=== PATIENT | female | born 1995 | race Caucasian/White ===

== ENCOUNTER 2016-09-24 03:13 | Inpatient (IN) | payer OTHER ==
[~2016-09-24] VITALS: Ht 172.7 cm; Wt 69.1 kg
[2016-09-24] VITALS (20 sets, daily range): BP systolic 82–117; BP diastolic 35–66; PULSE 92–144; RESP 10–41; O2SAT 89–100
--- NOTE | 2016-09-24 03:15 | NUR ---
heart tones FHTs 165 w/doppler in ER
[2016-09-24] MEDS ORDERED: 0.9% Sodium Chloride 1,000 ML IV ONE ×2 (03:33→08:00)
--- NOTE | 2016-09-24 03:44 | ED.REPORT ---
HPI-General Illness Date of Service Sep 24, 2016 ED Provider: Dr. Juanpablo Alcaraz M.D. A healthy 21 year old female at 31 weeks presents to the ED accompanied by her parents with dyspnea onset just prior to arrival. The patient also reports one week of fever (39.3 in ED), fatigue, and worsening productive cough with yellow sputum. She denies diarrhea, vomiting, dysuria, hematuria, or other symptoms. Two days ago the patient was seen by her PCP and placed on Keflex for URI and UTI. The patient takes buprenorphine regularly but is currently on a taper. Nursing Notes Stated Complaint: FEVER/TROUBLE BREATHING Chief Complaint: FLU/Cold Symptoms Nursing Notes Reviewed: Yes Allergies: Coded Allergies: No Known Allergies (Unverified , 09/24/16) General Time Seen by MD: 03:44 Chief Complaint Other (Dyspnea) Hx Obtained From: Patient Arrived By: Walk-in Sudden in Onset?: No Onset Occurred: 1 week ago Symptom Duration: Since onset Severity: Current: No pain currently Severity: Maximum: No pain Associated with: Reports: Cough, Fever, Denies: Vomiting Pertinent Negative: Relieved by nothing Recent Healthcare: Recent doctor visit, Recent testing Past Medical History Past Medical History None reported Past Surgical History None reported Smoking History Unknown if Ever Smoker Social History Other Social History: Good social support Ambulatory Status Independent Review of Systems + Dyspnea Full Review of Systems Constitutional: Reports: Fatigue, Fever (39.3 in ED) Respiratory: Reports: Prod cough, yellow GI: Denies: Diarrhea, Vomiting Female: Denies: Dysuria, Hematuria Complete sys rev & neg: except as marked. Physical Exam Vital Signs Vital Signs Date Time Temp Pulse Resp B/P Pulse Ox O2 Delivery O2 Flow Rate FiO2 09/24/16 04:53 120 24 95 Room Air 09/24/16 04:46 122 23 92/51 95 8 09/24/16 03:26 39.3 135 33 91/40 92 Room Air Initial VS: Reviewed Neurologic: Alert, Oriented, Nonfocal Psychiatric: Mood/affect normal, Behavior normal, Normal thought content General/Constitutional: Awake, Alert Distress / Hydration: Positive: Distress moderate Head / Eyes: Atraumatic, Normocephalic, No scleral icterus, Conjunctiva NL ENT: Airway patent Mouth: Positive: Mucous membranes dry Neck: Supple, Full range of motion, No adenopathy, No JVD Respiratory / Chest: Breath sounds = bilat, No respiratory distress Diminished Breath Sounds: Positive: Decreased bilateral Rales / Rhonchi: Positive: Rhonchi coarse L (Base), Rhonchi coarse R (Base) Cardiovascular: Regular rhythm, Heart sounds NL, No murmurs Heart Rate / Rhythm: Positive: Tachycardia Abdomen: Atraumatic Gravid uterus Skin: Atraumatic Color / Condition: Positive: Diaphoresis present Feels febrile Interpretation & Diagnostics Interpretation & Diagnostics: INFLUENZA NEGATIVE Lab Results Interpretation Result Diagram: 09/24/16 0350 09/24/16 0350 Test 09/24/16 03:30 09/24/16 03:50 09/24/16 04:03 Urine Color Dark yellow (YELLOW) Urine Appearance Hazy (CLEAR,HAZY) Urine pH 6.2 (5.0-8.0) Urine Specific [place] 1.020 (1.003-1.035) Urine Protein 30mg/dL (NEG,TRACE) Urine Glucose (UA) Negativemg/dL (NEGATIVE) Urine Ketones >80mg/dL (NEGATIVE) Urine Occult Blood Negative (NEGATIVE) Urine Nitrite Negative (NEGATIVE) Urine Bilirubin Negative (NEGATIVE) Urine Urobilinogen 2.0mg/dL (NORMAL) Urine Leukocyte Esterase Moderate (NEGATIVE) Urine RBC 0-2/hpf (0-2) Urine WBC 11-50/hpf (0-5) Urine Epithelial Cells Many/hpf (NONE-MOD) Urine Crystals None seen (NONE SEEN) Urine Bacteria Moderate/hpf (NONE-FEW) Urine Hyaline Casts None/lpf (NONE) Urine Granular Casts None seen (NONE SEEN) Urine Waxy Casts None seen (NONE SEEN) Urine Red Blood Cell Casts None seen (NONE SEEN) Urine White Blood Cell Casts None seen (NONE SEEN) Urine Mucus None seen (None Seen) Urine Trichomonas None seen (NONE SEEN) Urine Yeast None (NONE SEEN) Urinalysis Comment None Urine Culture Reflexed Indicated White Blood Count 7.6th/mm3 (3.8-10.1) Red Blood Count 3.80mil/mm3 (3.90-5.20) Hemoglobin 11.0g/dL (12.0-15.6) Hematocrit 31.5% (35.0-46.0) Mean Corpuscular Volume 82.9fL (81-100) Mean Corpuscular Hemoglobin 28.9pg (27.0-35.0) Mean Corpuscular Hemoglobin Concent 34.9% (32.0-37.0) Red Cell Distribution Width 12.9% (12.3-15.4) Platelet Count 160bil/L (150-400) Neutrophils (%) (Auto) 87.4% (40-74) Lymphocytes (%) (Auto) 8.5% (14-46) Monocytes (%) (Auto) 2.1% (4-12) Eosinophils (%) (Auto) 0% (0-5) Basophils (%) (Auto) 0.3% (0-3) Prothrombin Time 10.6sec (8.1-12.5) Prothromb Time International Ratio 0.99ratio Activated Partial Thromboplast Time 41.1sec (22.8-33.0) Sodium Level 131mEq/L (134-144) Potassium Level 2.8mEq/L (3.5-5.2) Chloride Level 100mEq/L (97-108) Carbon Dioxide Level 17mmol/L (18-29) Blood Urea Nitrogen 5mg/dL (6-20) Creatinine 0.57mg/dL (0.57-1.00) Estimat Glomerular Filtration Rate 188mL/min (>59) Glucose Level 121mg/dL (60-99) Lactic Acid Level 1.4mmol/L (0.4-2.0) Calcium Level 7.3mg/dL (8.5-10.1) Magnesium Level 1.6mg/dL (1.6-2.6) Total Bilirubin 0.7mg/dL (0.0-1.2) Aspartate Amino Transf (AST/SGOT) 33U/L (0-50) Alanine Aminotransferase (ALT/SGPT) 8U/L (0-32) Alkaline Phosphatase 124U/L (25-150) Troponin T 0.010ug/L (0.0-0.011) Pro-B-Type Natriuretic Peptide 1487pg/mL (0-130) Total Protein 5.8g/dL (6.4-8.4) Albumin 2.6g/dL (3.4-5.0) Lipase 36U/L (13-60) Hold [place] Top Tube Received (Received) X-Ray Chest Interpretation Chest Xray Interpretation: Bilateral pneumonia View: Portable, 1 view Interpretation / Wet Read by: Wet read ED physician Re-Eval/Medical Decision Med Decision/Clinical Course 21-year-old currently thirty-one weeks , in the middle of ibuprofen morphine taper for opioid addiction. She presents with a week of febrile illness, cough, and worsening shortness of breath. She is quite tachycardic, saturating adequately but with a pulse ox of 93% on room air. X-ray one view shows lingular and right lower lobe infiltrates. This despite treatment with Keflex over the past two days. Admitted now for IV antibiotics including Rocephin and azithromycin. Not much improved by a DuoNeb here, which she terminated after half a dose. Transported in stable condition. Time of Eval: 04:34 Patient Status: Condition unchanged Re-Evaluation/Progress Note: Patient rechecked. She has not taken her prescribed buprenorphine today. The patient now reports pleuritic chest pain. Discussed with patient x-ray and lab results, diagnosis, and plan for admit. Patient agrees with plan for care and all questions were addressed. Consultation #1: Referral / Consult Name: Calvin Davila DO Consulted With: Primary care physician Call Returned at: 04:42 Junior Web Developer: Agrees with eval, Agrees with plan Note: call center analyst for Dr. Casarez - Will consult on admit Consultation #2: Referral / Consult Name: Princess Santacruz DO Consulted With: Hospitalist Call Returned at: 04:47 Junior Web Developer: Agrees with eval, Agrees with plan, Accepts admit Counseled Regarding: Diagnosis, Lab results, Need for admission Discharge & Departure Primary Impression: Bilateral pneumonia Pneumonia type: due to unspecified organism Lung location: lower lobe of lung Qualified Code: J18.9 - Pneumonia, unspecified organism Disposition: ADMITTED TO HOSPITAL Discharge Condition All VS Reviewed: Yes Condition: Improved Referrals: Moreno Casarez MD (PCP) Evaristoibjosie Attestation Portions of this note were transcribed by Camryn Beaver. I, Dr. Alcaraz, personally performed the history, physical exam, and medical decision-making; I reviewed and confirmed the accuracy of the information in the transcribed note. Signed by: Oswald Loyd, 09/24/2016, 05:30 copies to: Moreno Casarez MD, Christopher W MD Sep 24, 2016 03:44 CAMRYN BEAVER Sep 24, 2016 03:57
[2016-09-24 03:47] LABS: APPEARANCE,URINE HAZY (CLEAR,HAZY); COLOR,URINE DARK YELLOW (YELLOW); OCCULT BLOOD,URINE NEGATIVE (NEGATIVE); PH,URINE 6.2 (5.0-8.0)
[2016-09-24 04:05] LABS: Mean Corpuscular Hemoglobin 28.9 pg (27.0-35.0); Mean Corpuscular Volume 82.9 fL (81-100); Platelet Count 160 bil/L (150-400)
[2016-09-24 04:20] LABS: BASOPHILS % (AUTO) 0.3 % (0-3); EOSINOPHILS % (AUTO) 0 % (0-5); MONOCYTES % (AUTO) 2.1 % (4-12); NEUTROPHILS % (AUTO) 87.4 % (40-74)
[2016-09-24 04:25] LABS: INR 0.99 ratio
[2016-09-24 04:31] LABS: TROPONIN T 0.01 ug/L (0.0-0.011)
[2016-09-24] MEDS ORDERED: cefTRIAXone Inj 2,000 MG in Dextrose 5% Minibag Plus 50 ML IV ONE (04:35)
[2016-09-24] MEDS ORDERED: Azithromycin Inj 500 MG in Dextrose 5% w/Vial Mate 250 ML IV ONE (04:35)
[2016-09-24] MEDS ORDERED: Albuterol-Ipratropium 3 mL Inhalation Solution NEB ONE (04:40)
[2016-09-24 04:42] LABS: Magnesium 1.6 mg/dL (1.6-2.6)
[2016-09-24] MEDS ORDERED: Ondansetron 2 mg/mL 2 mL Inj IVPUSH PRN (04:50)
[2016-09-24] MEDS ORDERED: Alum-Mag Hydrox-Simeth 30 mL Suspension PO PRN (04:50)
[2016-09-24] MEDS ORDERED: Polyethylene Glycol (PEG) 17 Gm Powder PO PRN (04:50)
[2016-09-24] MEDS ORDERED: 0.9% Sodium Chloride 1,000 ML IV SCH (04:50)
[2016-09-24] MEDS ORDERED: Potassium Chloride 20 mEq SR Tablet PO ONE (05:50)
--- NOTE | 2016-09-24 05:53 | PCM.HPMED ---
Subjective Date of Service Sep 24, 2016 Primary Provider: Admitting Physician: Primary Care Physician: Moreno Casarez MD Attending Physician: Chief Complaint: Fever, productive cough, myalgias History of Present Illness: 21-year-old female with past medical history significant for heroin abuse, and currently 31 weeks who presents with approximately one-week history of fever, myalgias, productive cough all of which have been worsening. She reports that approximately one week ago she noticed bilateral lower rib pain. Fevers soon followed thereafter, and did not seem to respond well to Tylenol (neither did the pain). She then developed productive cough (yellow sputum). She was seen by her law researcher (Dr. Casarez) approximately 1 or 2 days after symptoms first presented, and at which time she was encouraged to keep up with her fluids and present to the ER if she was having difficulty doing so. She subsequently presented to the ER at [facility] about 2 days ago at which time she was given a 1 time dose of IV antibiotics (potentially Rocephin), and discharged home with a prescription course of Keflex to be taken twice a day (at this point she is taken 3 tabs), and encouraged to keep up with her fluids. She presented to the ER at [facility] today as her symptoms were not improving, and she was feeling worse and worse with every day. She did not have her flu vaccine this year. She quit smoking approximately 3 weeks ago. She feels as though she just cannot get comfortable, and notes over and over the bilateral lower rib pain (please note this started before she developed her cough). She reports feeling somewhat dizzy on her feet, but no falls. She reports that the baby is moving. In the ER, her vital signs are significant for a March temperature 39.3C ( patient took a dose of Tylenol approximately 1 hour before presenting), tachycardia with a max rate of 135, tachypnea with a max rate of 33, and borderline low blood pressures with the lowest being 91/40. Thus far she has been able to maintain her pulse ox in the low to mid 90s on room air. The rapid flu test was negative. The chest x-ray is markedly abnormal with significant opacifying infiltrate in the left lower lobe, and question of one on the right. She was given empiric doses of Rocephin and azithromycin. A breathing treatment was attempted given her tachypnea, but the patient noted that she had a harder time breathing with the treatment. The ER physician discussed her case with the provider covering for Dr. Casarez (Dr. Davila), who recommended that that she be seen early this morning by local law researcher for assessment. Patient is admitted under inpatient status with expected length of stay greater than 2 midnights due to severity of presenting symptoms, risk of adverse event, and complexity of treatment plan. Review of Systems: Comprehensive review of systems conducted and was negative except for the pertinent positives listed in history of present illness above. Allergies Coded Allergies: No Known Allergies (Unverified , 09/24/16) Home Medications Medications as follows per patient and her parents report, med rec is not yet completed: Buprenorphine: Checked [facility] [employer]PORATE AFFAIRS MANAGER: 8 mg tablet sublingual daily She has been taking Tylenol on a scheduled basis for the last week or so for this fever and myalgias vitamin PMH : , currently at 31 weeks, LMP 01/25/16, [place] 10/31/16 History of bulimia History of heroin abuse, reports she has been clean for 1 year, on Subutex History of tobacco dependence, she quit 3 weeks ago Surgical History Denies any past surgical history Family History Her father reports that the family history is strong for by pneumonia. Her grandfather (he was reportedly healthy all his life) due to pneumonia in his 70s Her grandmother (she had chronic disease) due to pneumonia ( contracted during a hospitalization) in her 60s Her uncle due to pneumonia in his 50s Parents otherwise denies significant family history. Social History Hx Alcohol Use: No Hx Substance Use: Yes (history of heroin abuse, clean for 1 year, on Subutex) Hx Tobacco Use: Yes Smoking Status: Former Smoker (less than 1 pack daily, quit 3 weeks ago) Living Arrangement: with Family (lives with her parents locally) Exam Vital Signs Vital Sign - Last Date Time Temp Pulse Resp B/P Pulse Ox O2 Delivery O2 Flow Rate FiO2 09/24/16 04:46 122 23 92/51 95 8 09/24/16 03:26 39.3 Room Air Intake and Output 09/23/16 09/23/16 09/24/16 Cumulative From/Thru 15:00 23:00 07:00 09/24/16 03:26 - 09/24/16 04:00 Intake Total 1000 ml 1000 ml Balance 1000 ml 1000 ml Intake IV Total 1000 ml 1000 ml Exam General: Well-developed, female sitting up on ER gurney. Alert, Oriented X3, Cooperative, mild-moderate Distress, does not appear comfortable and continually shifting to find a more comfortable position Head: Normocephalic, atraumatic. External ears normal. Eyes: PERRL, EOMI. Anicteric sclerae. Conjunctivae are not injected Mouth: Mouth Normal, Mucous Membranes Moist/[place] Neck: Neck supple with full range of motion. No Thyromegaly. No lymphadenopathy appreciated Chest & Lungs: Diminished breath sounds in the bases bilaterally. Do not appreciate any rales, wheezes, or rhonchi. Otherwise clear good breath movement in the senior living up the apices. Tachypnea. Cardiovascular: Regular Rate/sinus tachycardia Rhythm on the monitor, Normal S1 , Normal S2, No Murmurs/Rubs/Gallops. Radial and posttibial pulses are 2+ bilaterally. Abdomen: Non-tender, Non-distended, gravid uterus is appreciated. No masses, Normoactive bowel tones, Soft Musculoskeletal: Normal Range of Motion Extremities: No cyanosis/clubbing/edema bilat Neurological: Grossly Neurologically Intact, Cranial Nerves 2-12 Intact, Normal Speech Psych: Somewhat distressed. Thought process and content intact. Lab and Diagnostics Labs Laboratory Tests 72 Hours Test 09/24/16 03:30 09/24/16 03:50 09/24/16 04:03 Urine Color Dark yellow (YELLOW) Urine Appearance Hazy (CLEAR,HAZY) Urine pH 6.2 (5.0-8.0) Urine Specific [place] 1.020 (1.003-1.035) Urine Protein 30mg/dL (NEG,TRACE) Urine Glucose (UA) Negativemg/dL (NEGATIVE) Urine Ketones >80mg/dL (NEGATIVE) Urine Occult Blood Negative (NEGATIVE) Urine Nitrite Negative (NEGATIVE) Urine Bilirubin Negative (NEGATIVE) Urine Urobilinogen 2.0mg/dL (NORMAL) Urine Leukocyte Esterase Moderate (NEGATIVE) Urine RBC 0-2/hpf (0-2) Urine WBC 11-50/hpf (0-5) Urine Epithelial Cells Many/hpf (NONE-MOD) Urine Crystals None seen (NONE SEEN) Urine Bacteria Moderate/hpf (NONE-FEW) Urine Hyaline Casts None/lpf (NONE) Urine Granular Casts None seen (NONE SEEN) Urine Waxy Casts None seen (NONE SEEN) Urine Red Blood Cell Casts None seen (NONE SEEN) Urine White Blood Cell Casts None seen (NONE SEEN) Urine Mucus None seen (None Seen) Urine Trichomonas None seen (NONE SEEN) Urine Yeast None (NONE SEEN) Urinalysis Comment None Urine Culture Reflexed Indicated White Blood Count 7.6th/mm3 (3.8-10.1) Red Blood Count 3.80mil/mm3 (3.90-5.20) Hemoglobin 11.0g/dL (12.0-15.6) Hematocrit 31.5% (35.0-46.0) Mean Corpuscular Volume 82.9fL (81-100) Mean Corpuscular Hemoglobin 28.9pg (27.0-35.0) Mean Corpuscular Hemoglobin Concent 34.9% (32.0-37.0) Red Cell Distribution Width 12.9% (12.3-15.4) Platelet Count 160bil/L (150-400) Neutrophils (%) (Auto) 87.4% (40-74) Lymphocytes (%) (Auto) 8.5% (14-46) Monocytes (%) (Auto) 2.1% (4-12) Eosinophils (%) (Auto) 0% (0-5) Basophils (%) (Auto) 0.3% (0-3) Prothrombin Time 10.6sec (8.1-12.5) Prothromb Time International Ratio 0.99ratio Activated Partial Thromboplast Time 41.1sec (22.8-33.0) Sodium Level 131mEq/L (134-144) Potassium Level 2.8mEq/L (3.5-5.2) Chloride Level 100mEq/L (97-108) Carbon Dioxide Level 17mmol/L (18-29) Blood Urea Nitrogen 5mg/dL (6-20) Creatinine 0.57mg/dL (0.57-1.00) Estimat Glomerular Filtration Rate 188mL/min (>59) Glucose Level 121mg/dL (60-99) Lactic Acid Level 1.4mmol/L (0.4-2.0) Calcium Level 7.3mg/dL (8.5-10.1) Magnesium Level 1.6mg/dL (1.6-2.6) Total Bilirubin 0.7mg/dL (0.0-1.2) Aspartate Amino Transf (AST/SGOT) 33U/L (0-50) Alanine Aminotransferase (ALT/SGPT) 8U/L (0-32) Alkaline Phosphatase 124U/L (25-150) Troponin T 0.010ug/L (0.0-0.011) Pro-B-Type Natriuretic Peptide 1487pg/mL (0-130) Total Protein 5.8g/dL (6.4-8.4) Albumin 2.6g/dL (3.4-5.0) Lipase 36U/L (13-60) Hold [place] Top Tube Received (Received) Result Diagram: 09/24/16 03509/24/16 035 Microbiology Blood and urine cultures pending Rapid flu is negative X-Rays, CTs and MRIs Chest x-ray on personal read demonstrates significant left lower lobe infiltrate with occlusion of the left inferior cardiac silhouette. 12-lead ECG Not performed this admission. Discussed her rhythm with telemetry tach and analyzed: Sinus tachycardia, QTC is within normal limits. Assessment & Plan 21-year-old female with past medical history significant for heroin abuse, and currently 31 weeks who presents with approximately one-week history of fever, myalgias, productive cough all of which have been worsening. 1. Sepsis, acute. Present on admission. -Patient received 2 L normal saline in the ER, and we will continue with IVF -Empiric antimicrobials as noted below -Lactic acid is not elevated -We will need to watch her blood pressures closely 2. Community-acquired pneumonia, acute. Present on admission. -Primary concern in this patient is influenza complicated by a secondary bacterial infection -We will administer one time dose of empiric Oseltamivir given the concern for flu in this patient * Will sign out to the day team regarding concerns and a one-time dose, and consideration for continuing 5 days at twice a day dosing. -We will continue empiric Rocephin and azithromycin for potential bacterial etiology -Respiratory PCR swab to be performed -We will add on Legionella and strep urine antigens -Add a sputum culture if patient is able to produce -She received 2 L of normal saline in the ER * In risk of developing fluid overload and pulmonary edema is higher, but with her low pressures, we will continue IVF -Administer oxygen supplementation to maintain saturations at greater than or equal to 94% -Consideration for getting infectious disease, and more importantly pulmonology involved 3. , 31 weeks, . -I have discussed the case personally with Dr. Casarez, and he has tenderness to the offered to come and evaluate the patient here in the hospital -Defer to his recommendations regarding specific interventions -Check heart tones every shift -Check NST daily 4. UTI, unclear if acute (please note the patient was seen in [facility] 2 days ago at which time she was diagnosed with UTI). Present on admission -We need to request records from [facility] -We will continue with empiric ceftriaxone, and await return of urine culture with sensitivities if positive (we will also see what they found it [place]) 5. Normocytic anemia, acute. Present on admission. -review of outpatient records demonstrates a hemoglobin of 14.6 on 03/30/16 -Potentially related to sepsis presentation -Continue to monitor labs closely 6. Hyponatremia, likely acute (but I do not have a past value to which to compare). Present on admission. -Likely related to decreased intake over the last several days given her acute illness -She received 2 L of normal saline in the ER, and we will continue with somewhat gentle hydration with LR -Continue to monitor lab 7. Hypokalemia acute and marked. Present on admission. -Stat repeat -Have ordered 20 mEq rider and 20 mEq to be given by mouth (these will be held until the stat repeat is completed) -Likely will require more -continue to monitor on telemetry 8. Non-gap metabolic acidosis, acute. Present on admission. -Given her degree of ketonuria there is significant concern for a potential ketotic process going on (starvation, alcohol, but diabetes unlikely) -Differential includes: As likely post hypocapnia (given the patient's respiratory distress over the last week), type I distal RTA, GI losses -We will check an ABG -We will add urine sodium, potassium, chloride -Fluid administration with LR at this point 9. On Subutex for history of heroin abuse. -Continue Subutex 8 mg sublingually daily 10. Tobacco dependence -Reports quit 3 weeks ago, potentially contributing to her productive cough -Consideration for very mild anxiolytic to help with withdrawal PRN MEDICATIONS - Acetaminophen as needed for mild pain/fever/headache - Bowel regimen as needed - Antiemetic as needed Patient is admitted under inpatient status with expected length of stay greater than 2 midnights due to severity of presenting symptoms, risk of adverse event, and complexity of treatment plan. Pain Evaluation: Adequate Pain Control GI Prophylaxis: Not indicated VTE Prophylaxis: Sub-Q Heparin (Unfractionated) Resuscitation Status: CPR: Attempt Resuscitation copies to: Camryn Daly PA-C; Moreno Casarez MD, Collin T DO Sep 24, 2016 04:51
[2016-09-24] MEDS ORDERED: Potassium Chloride Inj 20 MEQ in Dextrose 5% 250 ML IV ONE (06:00)
[2016-09-24] MEDS ORDERED: BUPR1FIL SL (06:22)
--- NOTE | 2016-09-24 06:37 | NUR ---
Admission Patient [place] [facility] [place] 0615. Placed on 1.5 L O2 via nasal cannula for comfort. Patient reports 4/10 chest pain from coughing, which she states is resolving. Patient reports single home medication of subutex 1 mg PO daily. Tele: sinus tachycardia in the 110s with QTc of 0.45 per compliance monitor. Continue to monitor.
[2016-09-24] MEDS: Lactated Ringer's 1,000 ML IV SCH ×3 (06:55→18:30)
[2016-09-24] MEDS ORDERED: Influenza (Adult) Vaccine 0.5 mL Syringe IM ONE (07:15)
--- NOTE | 2016-09-24 07:19 | ABG ---
DateTimeAnalyzed 07:09:00 -_ pH ____7.395 - 7.350 7.450 pCO2 ___29.3__ -mmHg 35.0 45.0 pO2 ___62.1__ -mmHg 70.0 100 HCO3- ___17.6__ -mmol/L 22.0 26.0 ABE ___-6.0__ -mmol/L -2.0 2.0 tHb ____9.6__ -g/dL 12.0 18.0 O2Hb ___90.3__ -% 95.0 COHb ____1.1__ -% 1.5 MetHb ____1.0__ -% 0.4 1.5 sO2 ___92.2__ -% FIO2 ___24.0__ -% Drawn By lw - Date/Time Notified____ 07:18:00 -_ Liter_Flow ____1.0__ -L/min Oxygen Device 1 nasal cannula - Notified By lw - Notified Whom ___Dr. de la Houssaye -__ B 755 -mmHg tO2 ___12.2__ -Vol% Jaret test _Positive -
[2016-09-24] MEDS ORDERED: KCl 40 mEq/D5W 500 mL 40 MEQ in IV Premix 500 EACH IV ONE (07:35)
[2016-09-24] MEDS ORDERED: Buprenorphine 2 mg SL Tablet SL SCH (08:30)
[2016-09-24] MEDS ORDERED: Heparin 5,000 Unit/mL Inj SUBQ SCH (08:30)
[2016-09-24] MEDS ORDERED: Multivit-Miner-Folic Acid-Iron Tablet PO SCH (08:30)
--- NOTE | 2016-09-24 08:31 | NUR ---
Social Work: Screening Data: Pt is a 21 y/o female admitted for bilateral pneumonia, 31 weeks . Pt's PCP is Dr Casarez, pt's insurance is [facility] [email or web address]. EMR reviewed. Per H&P, pt reported history of heroin use but being one year clean and on Subutex. No d/c planning needs anticipated at this time. CRYSTAL GROWER will continue to follow if needs arise. Assessment: Pt who is independent at baseline. Plan: Pt will d/c home via POV when medically stable. No d/c planning needs anticipated at this time. CRYSTAL GROWER will continue to follow if needs arise. LIZZ Blum
[2016-09-24 09:17] LABS: APPEARANCE,URINE HAZY (CLEAR,HAZY); COLOR,URINE YELLOW (YELLOW); OCCULT BLOOD,URINE TRACE (NEGATIVE); UROBILINOGEN,URINE NORMAL (NORMAL)
--- NOTE | 2016-09-24 09:22 | NUR ---
NST performed and reactive for 31 wks.
--- NOTE | 2016-09-24 09:26 | NUR ---
Pain Pt c/o of IV site pain r/t potassium infusion, reduced rate to 75mls/hr with good relief.
--- NOTE | 2016-09-24 09:54 | PCM.CHPMED ---
Subjective Date of Service: Sep 24, 2016 Provider requesting consult: Eduin Rashid DO Primary Physician: Admitting Physician: Princess Santacruz DO Primary Care Physician: Moreno Casarez MD Attending Physician: Princess Santacruz DO Chief Complaint: Chief Complaint: Fever, productive cough, myalgias, 31 weeks gestation. History of Present Illness: Patient is a 21-year-old woman admitted to [facility] for suspected pneumonia and sepsis, she is 31 weeks , reportedly course has been unremarkable. Patient states she has been receiving routine care through Dr. Fontaine's office, and as of evaluation this morning has not noticed any decrease or increase the movement. This is her first , has not had any vaginal leakage, blood or other abnormal discharge. She has not been feeling contractions. Review of Systems: Constitutional: Reports: Chills, Fever Neck: Denies: Swelling Respiratory: Reports: Cough Gastrointestinal: Denies: Abdominal Pain Genitourinary: Reports: No burning or pain with urination Reproductive Female: Reports: /Para ( 00) Musculoskeletal: Denies: Ankle Pain, Back Pain Neurological: Denies: Confusion, Dizziness Hematologic: Denies: Abnormal Bleeding PMH Past Medical History Currently History of bulimia nervosa History of heroin abuse, reportedly clean for 1 year currently using Subutex History of tobacco dependence, quitting she quit 3 weeks ago. Hx Any Other Health Problems?: NoHx Diabetes: No Surgical History Denies any surgical history Allergies: Coded Allergies: No Known Allergies (Unverified , 09/24/16) Social History Hx Alcohol Use: YesHx Substance Use: Yes (history of heroin abuse, clean for 1 year, on Subutex)Hx Tobacco Use: Yes Smoking Status: Former Smoker (less than 1 pack daily, quit 3 weeks ago) Living Arrangement: with Family (lives with her parents locally) Exam Vital Signs Vital Sign - Last Date Time Temp Pulse Resp B/P Pulse Ox O2 Delivery O2 Flow Rate FiO2 09/24/16 09:11 36.4 92 20 91/59 100 Nasal Cannula 2.00 Intake and Output 09/23/16 09/23/16 09/24/16 Cumulative From/Thru 15:00 23:00 07:00 09/24/16 03:26 - 09/24/16 06:27 Intake Total 2330 ml 2330 ml Balance 2330 ml 2330 ml Intake IV Total 2330 ml 2330 ml General: Alert, Oriented X3, Cooperative, Mild Distress Head: Normal Eyes: PERRLA, EOMI Chest & Lungs: Other (unable to appreciate any rales, rhonchi, wheezes. Effort was normal.) Cardiovascular: Regular Rate/Rhythm, Normal S1, Normal S2, No Murmurs/Rubs/ Gallops Pulses: NL carotid, radial, femoral, DP, PT Abdomen: Non-tender, Other (abdomen is gravid, apex of fundus roughly long-term between the umbilicus and xiphoid, nontender. Fetus was felt moving during palpation.) Musculoskeletal: Other (able to move extremities on her own volition, able to ambulate independently.) Extremities: No cyanosis/clubbing/edma bilat, Warm Neurological: Grossly Neurologically Intact, Cranial Nerves 2-12 Intact, Normal Speech, Normal Gait Lab and Diagnostics Labs CBC Test 09/24/16 03:50 White Blood Count 7.6th/mm3 (3.8-10.1) Red Blood Count 3.80mil/mm3 (3.90-5.20) Hemoglobin 11.0g/dL (12.0-15.6) Hematocrit 31.5% (35.0-46.0) Mean Corpuscular Volume 82.9fL (81-100) Mean Corpuscular Hemoglobin 28.9pg (27.0-35.0) Mean Corpuscular Hemoglobin Concent 34.9% (32.0-37.0) Red Cell Distribution Width 12.9% (12.3-15.4) Platelet Count 160bil/L (150-400) Neutrophils (%) (Auto) 87.4% (40-74) Lymphocytes (%) (Auto) 8.5% (14-46) Monocytes (%) (Auto) 2.1% (4-12) Eosinophils (%) (Auto) 0% (0-5) Basophils (%) (Auto) 0.3% (0-3) CMP Test 09/24/16 03:50 09/24/16 04:03 09/24/16 06:20 Sodium Level 131mEq/L Chloride Level 100mEq/L Carbon Dioxide Level 17mmol/L Blood Urea Nitrogen 5mg/dL Creatinine 0.57mg/dL Estimat Glomerular Filtration Rate 188mL/min Glucose Level 121mg/dL Lactic Acid Level 1.4mmol/L Calcium Level 7.3mg/dL Magnesium Level 1.6mg/dL Total Bilirubin 0.7mg/dL Aspartate Amino Transf (AST/SGOT) 33U/L Alanine Aminotransferase (ALT/SGPT) 8U/L Alkaline Phosphatase 124U/L Troponin T 0.010ug/L Pro-B-Type Natriuretic Peptide 1487pg/mL Total Protein 5.8g/dL Albumin 2.6g/dL Lipase 36U/L Hold [place] Top Tube Received Potassium Level 3.0mEq/L Procalcitonin 3.01ng/mL Result Diagram: 09/24/16 0350 09/24/16 0620 Assessment & Plan Assessment 21-year-old woman currently 31 weeks hospitalized for pneumonia, urinary tract infection, meeting sepsis criteria. Bacterial cultures have yet to grow anything, however respiratory swab was positive for adenovirus. Medically patient is stabilizing, as evidenced by decrease in tachycardia. In regards to fetus well-being, further workup is necessary. 1) Evaluation of fetus well-being - Nonstress test and biophysical profile to be performed. Given the hypotension , there is concern for uteroplacental hypoperfusion. - Given mother's septic state, she is at risk for labor, subsequently she may need to be transferred to a facility with appropriate NICU. The women's health team appreciates the consult, will be in close contact with the managing medicine team. Problems: (1) Adenovirus positive by PCR Status: Acute ICD Code: B34.0 (2) 31 weeks gestation of Status: Acute ICD Code: Z3A.31 Pain Evaluation: Adequate Pain Control GI Prophylaxis: Not indicated VTE Prophylaxis: Sub-Q Heparin (Unfractionated) Resuscitation Status: CPR: Attempt Resuscitation Attending Statement Patient was seen and examined. After discussing with her care team it appears her care has been with her OB in [place], not with Dr. Casarez, so we will assume care at this point in time. She is 31 weeks admitted with an presumed community acquired pneumonia. She is ill appearing on antibiotics which are being managed by her primary care team. BPP was 6/8 off for breathing which is acceptable at her early gestational age and NST was reassuring. Given this would recommend intermittent monitoring and close maternal monitoring as she is at increased risk for acute decompensation and acute respiratory failure in the setting of . Additionally, she is at risk for labor as well given her infectious process with sepsis and may need expedited delivery in the setting of worsening pulmonary status at which point transfer would be indicated for a higher acuity NICU facility. At this point in time, she is clinically stable and we will continue to monitor her for worsening of her maternal/ well being. Hermilo Brasher DO Sep 24, 2016 09:54 Eloisa Park MD Sep 25, 2016 06:01
--- NOTE | 2016-09-24 10:21 | DRSVH ---
PROCEDURE: X-RAY CHEST ONE VIEW ([id number]) INDICATIONS: cough, sob, hypoxemia TECHNIQUE: One view of the chest was acquired. COMPARISON: [facility], CR, CHEST 2VW, 06/28/2013, 2:49. FINDINGS: Surgical changes and devices: None. Lungs and pleura: No pleural effusions or pneumothorax. Mid/bibasilar airspace opacities present, l eft greater than right and there is a small left pleural effusion. Mediastinum: Mediastinal contours appear normal. Heart size is normal. Bones and chest wall: No suspicious bony lesions. Overlying soft tissues appear unremarkable. IMPRESSION: Suspicious for bilateral pneumonia, left greater than right and small left parapneumonic effusion. Dictated by: Tim CARTER Interpreted: Renee Moon MD on 09/24/2016 at 10:20 Transcribed by: SAUL on 09/24/2016 at 10:21 Approved by: Renee Moon M.D. on 09/24/2016 at 14:55
--- NOTE | 2016-09-24 11:41 | NUR ---
Med Refusal Pt refused Subutex, pt took med this morning before arriving to hospital. Additionally, med is at the wrong dose, pt reports taking 1mg vs 8 mg, MD notified and will adjust dosing.
[2016-09-24 12:31] LABS: BASOPHILS % (AUTO) 0.6 % (0-3); EOSINOPHILS % (AUTO) 0 % (0-5); MONOCYTES % (AUTO) 1.6 % (4-12); Mean Corpuscular Hemoglobin 28.3 pg (27.0-35.0); Mean Corpuscular Volume 84.7 fL (81-100); Platelet Count 142 bil/L (150-400)
[2016-09-24 12:53] LABS: Phosphorus 2.4 mg/dL (2.5-4.9)
[2016-09-24] MEDS ORDERED: Calcium GLUCO 10% (mEq) Inj 4.65 MEQ in Dextrose 5% 50 ML IV ONE (13:40)
--- NOTE | 2016-09-24 13:47 | PCM.PNMED ---
Subjective Date of Service Sep 24, 2016 Subjective Agree with the plan below outlined by admitting physician, Dr. Moreno. Exam Vital Signs Vital Sign - Last Date Time Temp Pulse Resp B/P Pulse Ox O2 Delivery O2 Flow Rate FiO2 09/24/16 12:53 37.3 117 20 104/63 93 Nasal Cannula 2.00 Intake and Output 09/23/16 09/23/16 09/24/16 Cumulative From/Thru 15:00 23:00 07:00 09/24/16 03:26 - 09/24/16 06:27 Intake Total 2330 ml 2330 ml Balance 2330 ml 2330 ml Intake IV Total 2330 ml 2330 ml Lab and Diagnostics Result Diagram: 09/24/16 1220 09/24/16 1220 Microbiology Blood and urine cultures pending Rapid flu is negative X-Rays, CTs and MRIs Chest x-ray on personal read demonstrates significant left lower lobe infiltrate with occlusion of the left inferior cardiac silhouette. 12-lead ECG Not performed this admission. Discussed her rhythm with telemetry tach and analyzed: Sinus tachycardia, QTC is within normal limits. Assessment & Plan 21-year-old female with past medical history significant for heroin abuse, and currently 31 weeks who presents with approximately one-week history of fever, myalgias, productive cough all of which have been worsening. 1. Sepsis, acute. Present on admission. -Patient received 2 L normal saline in the ER, and we will continue with IVF -Empiric antimicrobials as noted below -Lactic acid is not elevated -We will need to watch her blood pressures closely 2. Community-acquired pneumonia, acute. Present on admission. -Primary concern in this patient is influenza complicated by a secondary bacterial infection -We will administer one time dose of empiric Oseltamivir given the concern for flu in this patient * Will sign out to the day team regarding concerns and a one-time dose, and consideration for continuing 5 days at twice a day dosing. -We will continue empiric Rocephin and azithromycin for potential bacterial etiology -Respiratory PCR swab to be performed -We will add on Legionella and strep urine antigens -Add a sputum culture if patient is able to produce -She received 2 L of normal saline in the ER * In risk of developing fluid overload and pulmonary edema is higher, but with her low pressures, we will continue IVF -Administer oxygen supplementation to maintain saturations at greater than or equal to 94% -Consideration for getting infectious disease involved 3. , 31 weeks, . -I have discussed the case personally with Dr. Casarez, and he has tenderness to the offered to come and evaluate the patient here in the hospital -Defer to his recommendations regarding specific interventions -Check heart tones every shift -Check NST daily 4. UTI, unclear if acute (please note the patient was seen in [facility] 2 days ago at which time she was diagnosed with UTI). Present on admission -We need to request records from [facility] -We will continue with empiric ceftriaxone, and await return of urine culture with sensitivities if positive (we will also see what they found it [place]) 5. Normocytic anemia, acute. Present on admission. -review of outpatient records demonstrates a hemoglobin of 14.6 on 03/30/16 -Potentially related to sepsis presentation -Continue to monitor labs closely 6. Hyponatremia, likely acute (but I do not have a past value to which to compare). Present on admission. -Likely related to decreased intake over the last several days given her acute illness -She received 2 L of normal saline in the ER, and we will continue with somewhat gentle hydration with LR -Continue to monitor lab 7. Hypokalemia acute and marked. Present on admission. -Stat repeat -Have ordered 20 mEq rider and 20 mEq to be given by mouth (these will be held until the stat repeat is completed) -Likely will require more -continue to monitor on telemetry 8. Non-gap metabolic acidosis, acute. Present on admission. -Given her degree of ketonuria there is significant concern for a potential ketotic process going on (starvation, alcohol, but diabetes unlikely) -Differential includes: As likely post hypocapnia (given the patient's respiratory distress over the last week), type I distal RTA, GI losses -We will check an ABG -We will add urine sodium, potassium, chloride -Fluid administration with LR at this point 9. On Subutex for history of heroin abuse. -Continue Subutex 8 mg sublingually daily 10. Tobacco dependence -Reports quit 3 weeks ago, potentially contributing to her productive cough -Consideration for very mild anxiolytic to help with withdrawal PRN MEDICATIONS - Acetaminophen as needed for mild pain/fever/headache - Bowel regimen as needed - Antiemetic as needed Patient is admitted under inpatient status with expected length of stay greater than 2 midnights due to severity of presenting symptoms, risk of adverse event, and complexity of treatment plan. GI Prophylaxis: Not indicated VTE Prophylaxis: Sub-Q Heparin (Unfractionated) VTE Mechanical Devices: Intermittant Pneumatic CD Resuscitation Status: CPR: Attempt Resuscitation Attending Statement Up date to today's note: Patient was seen and examined by both myself (Dr. Chamberlain) and Dr. Donaldson this morning and patient was doing well. Patient seemed to respond to the antibiotics and tylenol, however later in day the patient started to have increased respiratory rate, became more hypotensive, and was febrile. On physical exam the patient was diaphoretic and using accessory muscles. Temperature was 39.4, pulse was 140, respiratory rate was 40, blood pressure was 101/60, pulse ox was 92% on 3.5 L nasal cannula. OB was called for any further recommendations and agreed with me that the patient was too septic and needed to be transferred to Center that had both a NICU and ICU for adults. [facility] was called and stated that the patient was too critical for their facility, [facility] was called and stated that they note did not have any ICU beds for adults and to try calling [facility], [facility] was called and they did not have any ICU beds. I called back to the [facility] and they said that they would make room for the patient. Critical care Dr. Trinidad and OB Dr Pearson from the [facility] were conferenced in and decided to accept the patient. The patient does have a history of anxiety and claustrophobia and was refusing a nonrebreather mask to help her oxygen saturations as they were decreasing. High flow nasal cannula with the nasal prongs was given to the patient and she was satting at 96-97% on 20 L of oxygen with a percent FiO2. The patient was doing well and had less accessory muscle usage for breathing and her respiratory rate was decreasing down from 144. It was explained to the patient that she cannot be transported on this particular device and that she would have to agree to the nonrebreather mask and be stable on this prior to transport. The patient finally agreed and responded well on the nonrebreather mask. Upon departure the patient was satting at 96% to 97% on 15 L of oxygen on the nonrebreather mask, pressure was 98/64, pulse was 126, respiratory rate was 38, temperature was 37.4. Upon discharge the patient did have a PICC line placed and on chest x-ray it was noted that the patient may have a possible cardiac tamponade. I called back who stated that she needed more imaging and for the patient to continue in transport. Patient was stable upon discharge to [facility]. Pneumonia -2 g of Rocephin and 500 mg of azithromycin -2 g meropenem -600 mg of linezolid -4+ liters of IV fluids lactated Ringer's and normal saline Hypokalemia -40 mEq IV 1 time dose Hypocalcemia -4.65 g of calcium gluconate one-time dose -31 weeks and 5 days -NSTs were normal -Dopplers were normal and good accelerations and no decelerations, heart rate upon admission was 130 however later in the day as the patient's heart rate increased the baby's heart rate increased to 180s DVT prophylaxis -No heparin was given patient used SCDs Patient was transferred to the [facility] at 8:15 PM in stable condition. Radha Donaldson DO Sep 24, 2016 13:47 Yudi Chamberlain DO Sep 24, 2016 16:57
--- NOTE | 2016-09-24 14:51 | DRSVH ---
PROCEDURE: US OB BIOPHYSICAL PROFILE AND UMBILICAL DOPPLER INDICATIONS: Maternal illness OUTSIDE/PRIOR DATING DATA: Last menstrual period (LMP): 01/25/2016. LMP-based estimated date of delivery (FALLON): 10/31/2016. First dating scan (date and location): 06/07/2016. Estimated date of delivery (FALLON) from first dating scan: 11/19/2016.. TECHNIQUE: Real-time scanning was performed of the fetus for biophysical profile, with image documentation. Col or and pulse Doppler interrogation was also performed of the umbilical artery near its insertion into the placenta. COMPARISON: None. FINDINGS: General: A single living intrauterine gestation is present. Presentation: Vertex. Placenta: Placental position is posterior, without previa. OB-DRYWALL TAPER Ultrasound Procedure Report Summary Fetus Summary Heart Rate: 110 bpm Gestational Age from initial dating scan: 32 weeks, 0 days Findings(Amniotic Sac) Amniotic Fluid Index (GERARDO): 20.50 cm Pelvis and Uterus Cervix Length (Mean): 3.69 cm Biophysical Profile Amniotic Fluid Volume: 2 Breathin Gross Body Movement: 2 Tone: 2 Biophysical Profile Sum Score: 6 Findings(Pelvic Vascular Structure) Umbilical Artery S/D Ratio: 2.13 Nuchal cord present. IMPRESSION: 1. Physical profile score of 6 out of 8 possible point and normal cord Doppler. Dictated by: Tim CARTER Interpreted: Renee Moon MD on 09/24/2016 at 14:49 Transcribed by: SAUL on 09/24/2016 at 14:51 Approved by: Renee Moon M.D. on 09/24/2016 at 16:47
--- NOTE | 2016-09-24 15:38 | NUR ---
Temp Pt has temp 39.2 upon assessment with chills, pt working to breath RR 28 sats 89%, switched to oxymask increased to 3L. BP 97/53 HR 139 RR 28 89% sats T 39.3.
--- NOTE | 2016-09-24 16:23 | NUR ---
Respiratory/Temp Alerted by WELLNESS CONSULTANT and primary nurse of concern for pt worsening condition. Upon assessment pt is tachypneic, febrile, tachycardic, diaphoretic, reporting pounding headache, lethargic, and family is noted to be pacing and concerned. Dr Donaldson and Dr Chamberlain notified of concern. Pt is requiring more O2 to maintain sats >90%, O2 increased to 5L NC. Pt noted to have suprasternal, supraclavicular retractions. Nursing matrix supervisor, and [employer] notified as well. Orders for new lactic acid, and notified FBC to monitor FHT and run a strip Plan is to transfer pt to [facility], pt's parents aware Addendum: 09/24/16 at 1903 by RENÉE MCKAY RN Pt continued to decline, O2 needs increased to 6L NC satting 92-94%, pt refusing oxymask due to claustrophobia. SBP dipped into the 90's, Dr Chamberlain aware, NS bolus started in addition to LR @ 125ml. SBP maintained 90-100, HR continued in 130-140's, RR in low 40s, temp remains 39. Nath catheter placed by FBC RN, Denisse, after pt up to bsc to urinate, draining jose j urine. Pt asking repeatedly how long and why she will need the nath. IM steroid given, after education to pt and FOB, (pt asking "why do I really need that? how do you know if I even need it?") FOB at bedside, encouraging and supporting pt. Monitoring changed over to MP30 with central monitoring. Pt complaining of leaking feeling around catheter and back pain. Dr Chamberlain notified, OB MD notified. OB RN back to test fluid urine vs amnio. Dr Chavira- die holder notified of situation, decision made to transfer pt to CCU until transfer to [place] available. Pt and family aware, repeat Lactic, PICC line, and abd u/s ordered. Pt transfered to 2014, this Rn and Parul English [employer] with pt. Report given to primary RN and chargeback specialistADONIS Sutton. Pt still resistent to wearing oxymask despite needing 7L NC and satting 94%.
[2016-09-24] MEDS ORDERED: Betameth Ace-Betam SodPhos 6 mg/mL 5 mL Inj IM ONE (17:05)
--- NOTE | 2016-09-24 17:17 | NUR ---
Called from [facility] to assess 31 week patient with pneumonia. Reactive FHR tracing with FHT baseline of 170, with accels to 190's. Fetus remained tachycardic with lowest FHR of 158. Fetus active, no uc's noted nor palpated. Pt states no lower uterine pain nor back discomfort or cramping. PT states has UTI. VE done 1.5cm internal os with 2cm external, 70 % effaced, with ballotable fetus. PT uncomfortable with generalized pain with movement. Maza catheter placed to assist staff with monitoring urine output. Mothers VS are 101/56 with HR 140, RR 41, sats 91-93% on 6lpm per NC. Pt refused mask. Bethamethasone given per staff midwife. Report to Dr Park and medical team, awaiting transport to higher level facility.
[2016-09-24] MEDS ORDERED: Meropenem Inj 2,000 MG in 0.9% Sodium Chloride 100 ML IV SCH (17:40)
[2016-09-24] MEDS ORDERED: Linezolid Inj 600 MG in IV Premix 1 EACH IV SCH (18:00)
--- NOTE | 2016-09-24 18:04 | NUR ---
FBC RN Over ROM Plus test completed, pt intact no evidence of ROM. Addendum: 09/24/16 at 1805 by DAVID CALHOUN RN No signs of contractions, HR 140-150.
--- NOTE | 2016-09-24 18:16 | NUR ---
Called to [facility], ROM + done to evaluate for ROM. Negative and no signs of rupture noted. FHR assessed with HR of 140-150's, maternal HR 130's. No uc's palpated although pt now complaining of lower back discomfort. Uterus remains soft to palpation. Fetus remains active. Pt being transferred to CCU for further monitoring.
[2016-09-24] MEDS ORDERED: Meropenem Inj 2,000 MG in 0.9% Sodium Chloride 100 ML IV ONE (18:20)
--- NOTE | 2016-09-24 18:27 | NUR ---
Dr Park updated of ROM plus results and condition. No new orders and no further monitoring at this time.
--- NOTE | 2016-09-24 19:16 | DRSVH ---
PROCEDURE: US ABDOMEN, LIMITED ([id number]) INDICATIONS: 21 year-old female with sepsis. Assess for cholecystitis or cholangitis. TECHNIQUE: Real-time focused scanning was performed of the abdomen, with image documentation. COMPARISON: None. FINDINGS: Liver is normal in overall size and echo texture. No gallstones or biliary sludge. Gallblad nestor wall thickness is upper normal at 3 mm. No pericholecystic fluid. No intra-or extrahepatic biliar y ductal dilation; biliary ducts are not well seen. There is moderate splenomegaly up to 14.9 cm. Bot h kidneys are normal in size, with mild bilateral hydronephrosis. Single living intrauterine gestatio n demonstrates normal heart rate of 150 beats per minute. IMPRESSION: 1. A source for sepsis is not identified on ultrasound. 2. Moderate splenomegaly is of uncertain etiology. Dictated by: Tyree Steinberg M.D. on 09/24/2016 at 19:12 Approved by: Tyree Steinberg M.D. on 09/24/2016 at 19:16
--- NOTE | 2016-09-24 19:25 | DRSVH ---
PROCEDURE: X-RAY CHEST ONE VIEW, PORTABLE ([id number]) INDICATIONS: 21 year-old female with worsening hypoxia. TECHNIQUE: One view of the chest was acquired. COMPARISON: [facility], CR, XR CHEST 1VW, 09/24/2016, 3:56. [facility], CR, CHEST 2VW, 10/04/2014, 15:08. [facility], CR, CHEST 2VW, 06/28/2013, 2:49. FINDINGS: Surgical changes and devices: None. Lungs and pleura: Bibasilar airspace opacities have increased, with internal air bronchograms. Small to moderate dependent left pleural effusion appears increased. No pneumothorax. Mediastinum: Mediastinal contours appear normal. Mild cardiomegaly is unchanged. Bones and chest wall: No suspicious bony lesions. Overlying soft tissues appear unremarkable. IMPRESSION: 1. Increased bibasilar airspace opacities, consistent with atelectasis, aspiration, or bronchopneumon ia. 2. Increasing small to moderate dependent left pleural effusion is of uncertain etiology. Dictated by: Tyree Steinberg M.D. on 09/24/2016 at 19:23 Approved by: Tyree Steinberg M.D. on 09/24/2016 at 19:25
--- NOTE | 2016-09-24 19:30 | CONS ---
[address] [address] CONSULTATION REPORT PATIENT: HOPE COSME : 1995 MR#: [id number] ADMIT: 09/24/2016 JOB ID: [id number] DATE OF SERVICE: 09/24/2016 PULMONARY CRITICAL CARE CONSULTATION NOTE: The patient is a 21-year-old woman seen in consultation emergently at the request of Dr. Yudi Chamberlain for severe sepsis and hypoxemia. HISTORY OF PRESENT ILLNESS: The patient is a 21-year-old woman with is at 31 weeks 5 days of gestation and presenting with an approximately one-week history of fever, chills, cough, and worsening shortness of breath. She presented to the emergency department at [facility] a couple of days ago and was told she had a urinary infection. She did not have a chest x-ray done at that time. She was reportedly given some IV antibiotics and p.o. Keflex which she took a few doses of. She continued to get worse despite that. She has had a headache on and off for a week but denies any photophobia. Her cough is productive of a small amount of sputum. She is apparently also complaining of rib pain. She was admitted here in the early hours of this morning around 6:00 and started on antibiotics, ceftriaxone and azithromycin. She has had a temperature of 39.3 on arrival and continues to spike fevers since 3 p.m. this afternoon almost continuously, as high as 39.4. Her blood pressures have been dropping intermittently into the 90s systolic over 50s diastolic. Oxygenation has steadily worsened over the course of the day, starting out at 1-2 L this morning and now up to 6 L with increasing shortness of breath. For this reason I was consulted. PAST MEDICAL HISTORY: Per review of note, the patient has: 1. History of bulimia. 2. History of heroin abuse but has been clean for one year on Subutex. 3. History of tobacco use. Quit smoking about three weeks ago. SOCIAL HISTORY: As above in past medical history. Ex-smoker, less than a pack a day, and quit smoking three weeks ago. FAMILY HISTORY: No history of lung disease in her parents. PHYSICAL EXAMINATION: Vital signs reviewed. T-max today of 39.4, pulse 135 currently, respiratory rate in the mid 30s, BP 98/52, sats 93% on 6 L nasal cannula. This is a thin young woman who is alert, answering questions appropriately. Slightly tachypneic, in mild distress at rest. Neck: No cervical lymphadenopathy. HEENT: Oral mucosa is moist. No ulcers or thrush. Chest: She does have some abnormal breath sounds at both lung bases. Heart: Regular rate, rhythm. No murmurs, but very tachycardiac. Abdomen: Gravid abdomen but nontender anywhere in the right upper quadrant, over the bladder, etc. I also palpated the costovertebral angles for renal angle tenderness and she is nontender there either. She has no nuchal rigidity. No photophobia on exam either. Skin: No rashes. Extremities: No cyanosis or clubbing. LABORATORIES: Reviewed. WBC 9, hemoglobin 10, platelets 142. Coags show INR of 0.99. APTT of 41. Sodium 136, potassium 3.6, chloride 106, bicarb of 18, BUN of 5, and creatinine of 0.51. Calcium was 6.6 and on recheck post repletion at 7.5. Lactate from 4:30 p.m. today is 1.2 and from early this morning was 1.4. A repeat lactate is pending right now. Total bilirubin 0.4, AST of 31, ALT of 7, alk phos of 107 which is down from 124 this morning. Total protein of 4.5, albumin of 2.2. Procalcitonin of 3.01, which is elevated. Serologies show negative urine Legionella antigen. UA: She has two UAs done about 5 hours apart. There were 11-50 white cells on the 1st UA and 0-5 white cells on the 2nd UA. I suspect the 1st one was a dirty catch. Cultures: Urine and blood cultures are still pending. Urine strep pneumoniae antigen is negative. She had a MRSA screen done that is also pending. Respiratory viral PCR panel is positive for adenovirus and negative for influenza and all other viruses. IMAGING: Chest x-ray done this morning reviewed and shows obvious right lower lobe infiltrate and also a retrocardiac infiltrate, and possibly an effusion. Arterial blood gas done at 7 a.m. today shows pH of 7.39, pCO2 of 29, pO2 of 62, and bicarbonate of 17. ASSESSMENT: 1. Severe sepsis. 2. Bilateral Pneumonia 3. Acute hypoxic respiratory failure. 4. Adenovirus infection 5. Hypotension. 6. Thirty-one weeks gestation. 7. Mild thrombocytopenia. RECOMMENDATIONS: This 21-year-old woman at 31 weeks gestation is presenting with severe sepsis likely of pulmonary source with bilateral pneumonia. She was just admitted in the early hours of this morning and received appropriate therapy with IV ceftriaxone and azithromycin. She has had at least 3 L of fluid bolus so far today. Lactate is normal at 1.2 at last check. Despite that, her blood pressure continues to be low, she continues to be febrile as high as 39.5, and tachycardic in the 130s. At this point, there appears to be no sign of distress but I am concerned that we may be missing a source of infection here. She has no signs or symptoms to suggest meningitis, cholangitis, or urinary tract infection/abscesses. Despite this, I would like to get a stat abdominal ultrasound to rule out an abdominal source of infection such as abscess or cholecystitis. I would also like to broaden her antibiotics from ceftriaxone and azithromycin to linezolid, meropenem at 2 g IV q.8, and continue azithromycin. I realize that linezolid is a category C drug for but I do not have any other option to cover MRSA in her case and given her history of IV drug use I would like to make sure this is covered since we are still waiting on the MRSA nasal screen. If the nasal screen is negative I think it is okay to stop the linezolid. Currently she only has a single IV. IV therapy has placed a 2nd IV. I would also like to have a PICC line placed emergently because I am concerned she may need pressors because of persistent hypotension despite fluid resuscitation. I also think we should switch to lactated Ringer's from here on because of her metabolic acidosis with bicarbonate of 18. We should watch her thrombocytopenia closely and repeat coags including fibrinogen looking for DIC if this worsens. I am also going to get an ultrasound and take a look at her chest to see if she has any pleural fluid/signs of empyema that would require drainage. I spoke at length to the patient, the baby's father, and the patient's parents, and we are transferring her to the ICU right now. She is a FULL CODE. She is not currently on any DVT prophylaxis but I think she should be on subcutaneous heparin q.8 h. hours and we will probably order that. Addendum: Primary hospitalist team is in the process of arranging transfer to a center with higher level of care with regards to the baby and a ICU if needed. It sounds like the [facility] has accepted the patient in transfer. In the meantime the stat abdominal ultrasound shows no obvious abnormality. Neither did the chest ultrasound which I did at the bedside showing only tiny pleural effusions bilaterally. TIME: Critical care time 90 minutes. RONYD
--- NOTE | 2016-09-24 20:01 | NUR ---
Transfer Patient arrived in CCU after 1800 today. Patient was tachypneic and tachycardic with RR 30-42 and HR 125-145. Initially BP in CCU was 98/64, oral temp 37.4. Oxygen saturation 90% on 6l NC O2 flow- patient refused oxygen mask at the time- she stated: it makes me claustrophobic. -Patient appeared to be anxious and emotional- MD was in the room and aware. MD orders HFO2 NC- and after some persuasion patient agreed to a different canula- placed on 20L and 80% HFO2 NC - oxygen saturation improved and was 95-97%. Patient was receiving LR at 125ml/h in addition to antibiotics. Patient was given additional 1l of LR bolus over 1h. Bedside ultrasound was completed. Right upper arm PICC line was placed by IV therapy. Urine output empted before transport from patients Maza was 275. Maza was placed but [facility] RN at around 1630 per verbal report. At 194 report was called to Didi - receiving RN at . Given report to the [facility] receiving [facility] shift RN at shift change. Patient left by ground transport at 1957.
--- NOTE | 2016-09-24 20:05 | NUR ---
Nursing Health Concierge note. Patient had just been taken down to departing ambulance when I returned a phone call from Dr. Monsivais the reading radiologist for the chest x-ray taken just before the pt. left. He states the x-ray reading shows a possible cardiac tamponade. Dr. Chamberlain called with this info and she instructs to stop the ambulance and bring the pt back to CCU.
--- NOTE | 2016-09-24 20:06 | DRSVH ---
PROCEDURE: X-RAY CHEST ONE VIEW, PORTABLE ([id number]) INDICATIONS: 21-year-old female with PICC placement. TECHNIQUE: One view of the chest was acquired. COMPARISON: [facility], CR, XR CHEST 1VW (PORTABLE), 09/24/2016, 19:02. [facility], CR, XR CHEST 1VW, 09/24/2016, 3:56. [facility], CR, CHEST 2VW, 10/04/2014, 15:08. FINDINGS: Surgical changes and devices: New right PICC is present, with tip in the lower superior vena cava. Lungs and pleura: Bibasilar airspace opacities persist, with internal air bronchograms. Moderate depe ndent left pleural effusion persists. No pneumothorax. Mediastinum: Mediastinal contours appear normal. There is increasing size of the cardiac silhouette. Bones and chest wall: No suspicious bony lesions. Overlying soft tissues appear unremarkable. IMPRESSION: 1. New right PICC is present, with tip in expected position. 2. Interval increasing size of the cardiac silhouette, concerning for pericardial effusion and possib le cardiac tamponade. 3. Persistent bibasilar airspace opacities, consistent with dense atelectasis, versus bronchopneumoni a. 4. Persistent moderate dependent left pleural effusion is of uncertain etiology. Possible cardiac tamponade findings were discussed with nursing tool and die supervisor Melba at 2002 hrs. on Sep. Patient is currently being transferred to [facility]. Dictated by: Tyree Steinberg M.D. on 09/24/2016 at 19:55 Approved by: Tyree Steinberg M.D. on 09/24/2016 at 20:05
--- NOTE | 2016-09-24 20:12 | NUR ---
Dr. Chamberlain calls to say she consulted by phone with the accepting ICU MD at [facility] and Dr. Trinidad instructed her to continue the transport to [facility] and not return to our CCU for further treatment of possible cardiac tamponade on chest x-ray. [facility] notified not to have the rig turn around and come back here after all.
--- NOTE | 2016-09-24 20:34 | PCM.DIOB ---
Obstetrical Disch Instruction Date of Service: Sep 24, 2016 Dates of Hospitalization Date of Hospital Admission Sep 24, 2016 at 05:17 Providers Admitting Physician: Princess Santacruz DO Primary Care Physician: Moreno Casarez MD Attending Physician: Princess Santacruz DO Discharge Diagnosis Problems: (1) Adenovirus positive by PCR Status: Acute ICD Code: B34.0 (2) 31 weeks gestation of Status: Acute ICD Code: Z3A.31 Follow Up Plan Follow Up Plan Discharged to [facility] Yudi Chamberlain DO Sep 24, 2016 20:34
--- NOTE | 2016-09-24 20:42 | PCM.DC.MED ---
Discharge Summary Date of Service Sep 24, 2016 Dates of Hospitalization Date of Hospital Admission Sep 24, 2016 at 05:17 Date of Discharge: Sep 24, 2016 Providers: Admitting Physician: Princess Santacruz DO Primary Care Physician: Moreno Casarez MD Attending Physician: Princess Santacruz DO Diagnosis at Time of Discharge Diagnosis at Time of Discharge Sepsis Pneumonia UTI Normocytic anemia acute Hyponatremia Hypokalemia Non-gap metabolic acidosis acute Drug dependence- Suboxone Consultations OB Critical care [facility] Procedures XRay, CTs & MRIs Current Medications Al Hydrox/Mg Hydrox/Simethicone 30 ml Q6H PRN PO; Start 09/24/16 at 04:50 Ondansetron HCl 4 to 8 mg Q4H PRN IVPUSH; Start 09/24/16 at 04:50 Senna 17.2 mg BID PRN PO; Start 09/24/16 at 04:50 Polyethylene Glycol 17 gm 17 gm DAILY PRN PO; Start 09/24/16 at 04:50 Sodium Chloride 1,000 ml @ 0 mls/hr Q0M IV Last administered on 09/24/16 04:10 ; Admin Dose 999 MLS/HR; Start 09/24/16 at 04:50; Stop 09/24/16 at 06:44; Status DC Lactated Ringer's 1,000 ml @ 100 mls/hr Q10H IV Last administered on 09/24/16 18:30; Admin Dose 100 MLS/HR; Start 09/24/16 at 06:00 Ceftriaxone Sodium 2000 mg/ Dextrose/Water 50 ml @ 100 mls/hr DAILY IV; Start 09/25/16 at 08:30 Azithromycin/ Dextrose/Water 250 ml @ 250 mls/hr Q24 IV; Start 09/25/16 at 08:30 Prenat Multivit/ [place]/Iron/Folic Ac 1 tablet DAILY PO Last administered on 08:51; Admin Dose 1 TABLET; Start 09/24/16 at 08:30 Buprenorphine HCl 8 mg DAILY SL; Start 09/24/16 at 08:30; Stop 09/24/16 at 11:50; Status DC Heparin Sodium (Porcine) 5,000 unit Q8 SUBQ; Start 09/24/16 at 08:30; Stop at 08:49; Status DC Oseltamivir Phosphate 75 mg BID PO; Start 09/24/16 at 20:30; Stop 09/24/16 at 20: 30; Status DC Buprenorphine HCl 1 mg DAILY SL; Start 09/25/16 at 08:30 Calcium Carbonate 500 mg TIDWM PO; Start 09/24/16 at 14:00; Stop 09/24/16 at 14:00 ; Status DC Acetaminophen 975 mg 975 mg Q4H PRN PO Last administered on 09/24/16 16:05; Admin Dose 975 MG; Start 09/24/16 at 16:05 Meropenem 2000 mg/ Sodium Chloride 100 ml @ 33.333 mls/ hr Q8H IV; Start at 17:40; Status Cancel Linezolid 600 mg/ Premix 300 ml @ 300 mls/hr Q12H IV Last administered on 19:00; Admin Dose 300 MLS/HR; Start 09/24/16 at 18:00 Meropenem/Sodium Chloride 100 ml @ 33.333 mls/ hr Q8 IV; Start 09/25/16 at 00:30 Vital Signs Date Time Temp Pulse Resp B/P Pulse Ox O2 Delivery O2 Flow Rate FiO2 09/24/16 19:30 37.4 124 39 89/54 96 High Flow 02 20.00 80 09/24/16 18:50 127 95 Nasal Cannula 20 80 09/24/16 18:29 37.4 126 38 98/64 95 Nasal Cannula 6.00 09/24/16 17:41 38.8 09/24/16 17:39 135 98/52 93 Nasal Cannula 6.00 09/24/16 17:30 97/44 94 Nasal Cannula 6.00 09/24/16 17:12 39.1 144 36 117/66 92 Nasal Cannula 6.00 09/24/16 16:51 39.1 09/24/16 16:49 138 41 101/56 94 Nasal Cannula 6.00 09/24/16 16:01 39.4 140 40 101/60 92 Nasal Cannula 3.50 09/24/16 15:37 Supplement Oxygen 09/24/16 15:37 39.3 139 28 97/53 89 Nasal Cannula 2.00 09/24/16 15:27 39.2 09/24/16 12:53 37.3 117 20 104/63 93 Nasal Cannula 2.00 Laboratory Tests Test 09/24/16 03:30 09/24/16 03:50 09/24/16 04:03 09/24/16 06:20 Urine Color Dark yellow (YELLOW) Urine Appearance Hazy (CLEAR,HAZY) Urine pH 6.2 (5.0-8.0) Urine Specific [place] 1.020 (1.003-1.035) Urine Protein 30mg/dL (NEG,TRACE) Urine Glucose (UA) Negativemg/dL (NEGATIVE) Urine Ketones >80mg/dL (NEGATIVE) Urine Occult Blood Negative (NEGATIVE) Urine Nitrite Negative (NEGATIVE) Urine Bilirubin Negative (NEGATIVE) Urine Urobilinogen 2.0mg/dL (NORMAL) Urine Leukocyte Esterase Moderate (NEGATIVE) Urine RBC 0-2/hpf (0-2) Urine WBC 11-50/hpf (0-5) Urine Epithelial Cells Many/hpf (NONE-MOD) Urine Crystals None seen (NONE SEEN) Urine Bacteria Moderate/hpf (NONE-FEW) Urine Hyaline Casts None/lpf (NONE) Urine Granular Casts None seen (NONE SEEN) Urine Waxy Casts None seen (NONE SEEN) Urine Red Blood Cell Casts None seen (NONE SEEN) Urine White Blood Cell Casts None seen (NONE SEEN) Urine Mucus None seen (None Seen) Urine Trichomonas None seen (NONE SEEN) Urine Yeast None (NONE SEEN) Urinalysis Comment None Urine Culture Reflexed Indicated Urine Random Sodium 65mEq/L Urine Random Potassium 19.8mEq/L Urine Random Chloride 50mEq/L Urine Legionella pneumophilia Ag Negative (Negative) White Blood Count 7.6th/mm3 (3.8-10.1) Red Blood Count 3.80mil/mm3 (3.90-5.20) Hemoglobin 11.0g/dL (12.0-15.6) Hematocrit 31.5% (35.0-46.0) Mean Corpuscular Volume 82.9fL (81-100) Mean Corpuscular Hemoglobin 28.9pg (27.0-35.0) Mean Corpuscular Hemoglobin Concent 34.9% (32.0-37.0) Red Cell Distribution Width 12.9% (12.3-15.4) Platelet Count 160bil/L (150-400) Neutrophils (%) (Auto) 87.4% (40-74) Lymphocytes (%) (Auto) 8.5% (14-46) Monocytes (%) (Auto) 2.1% (4-12) Eosinophils (%) (Auto) 0% (0-5) Basophils (%) (Auto) 0.3% (0-3) Prothrombin Time 10.6sec (8.1-12.5) Prothromb Time International Ratio 0.99ratio Activated Partial Thromboplast Time 41.1sec (22.8-33.0) Sodium Level 131mEq/L (134-144) Potassium Level 2.8mEq/L (3.5-5.2) 3.0mEq/L (3.5-5.2) Chloride Level 100mEq/L (97-108) Carbon Dioxide Level 17mmol/L (18-29) Blood Urea Nitrogen 5mg/dL (6-20) Creatinine 0.57mg/dL (0.57-1.00) Estimat Glomerular Filtration Rate 188mL/min (>59) Glucose Level 121mg/dL (60-99) Lactic Acid Level 1.4mmol/L (0.4-2.0) Calcium Level 7.3mg/dL (8.5-10.1) Magnesium Level 1.6mg/dL (1.6-2.6) Total Bilirubin 0.7mg/dL (0.0-1.2) Aspartate Amino Transf (AST/SGOT) 33U/L (0-50) Alanine Aminotransferase (ALT/SGPT) 8U/L (0-32) Alkaline Phosphatase 124U/L (25-150) Troponin T 0.010ug/L (0.0-0.011) Pro-B-Type Natriuretic Peptide 1487pg/mL (0-130) Total Protein 5.8g/dL (6.4-8.4) Albumin 2.6g/dL (3.4-5.0) Lipase 36U/L (13-60) Hold [place] Top Tube Received (Received) Procalcitonin 3.01ng/mL (0.00-0.08) Test 09/24/16 08:32 09/24/16 12:20 09/24/16 16:35 09/24/16 18:07 Urine Color Yellow (YELLOW) Urine Appearance Hazy (CLEAR,HAZY) Urine pH 6.0 (5.0-8.0) Urine Specific [place] 1.005 (1.003-1.035) Urine Protein Tracemg/dL (NEG,TRACE) Urine Glucose (UA) Negativemg/dL (NEGATIVE) Urine Ketones Negativemg/dL (NEGATIVE) Urine Occult Blood Trace (NEGATIVE) Urine Nitrite Negative (NEGATIVE) Urine Bilirubin Negative (NEGATIVE) Urine Urobilinogen Normalmg/dL (NORMAL) Urine Leukocyte Esterase Trace (NEGATIVE) Urine RBC 0-2/hpf (0-2) Urine WBC 0-5/hpf (0-5) Urine Epithelial Cells Occasional/hpf (NONE-MOD) Urine Crystals None seen (NONE SEEN) Urine Bacteria Few/hpf (NONE-FEW) Urine Hyaline Casts None/lpf (NONE) Urine Granular Casts None seen (NONE SEEN) Urine Waxy Casts None seen (NONE SEEN) Urine Red Blood Cell Casts None seen (NONE SEEN) Urine White Blood Cell Casts None seen (NONE SEEN) Urine Mucus None seen (None Seen) Urine Trichomonas None seen (NONE SEEN) Urine Yeast None (NONE SEEN) Urinalysis Comment None Urine Culture Reflexed Indicated White Blood Count 9.0th/mm3 (3.8-10.1) Red Blood Count 3.53mil/mm3 (3.90-5.20) Hemoglobin 10.0g/dL (12.0-15.6) Hematocrit 29.9% (35.0-46.0) Mean Corpuscular Volume 84.7fL (81-100) Mean Corpuscular Hemoglobin 28.3pg (27.0-35.0) Mean Corpuscular Hemoglobin Concent 33.4% (32.0-37.0) Red Cell Distribution Width 13.0% (12.3-15.4) Platelet Count 142bil/L (150-400) Neutrophils (%) (Auto) 88.0% (40-74) Lymphocytes (%) (Auto) 10.1% (14-46) Monocytes (%) (Auto) 1.6% (4-12) Eosinophils (%) (Auto) 0% (0-5) Basophils (%) (Auto) 0.6% (0-3) Sodium Level 136mEq/L (134-144) Potassium Level 3.6mEq/L (3.5-5.2) Chloride Level 106mEq/L (97-108) Carbon Dioxide Level 18mmol/L (18-29) Blood Urea Nitrogen 5mg/dL (6-20) Creatinine 0.51mg/dL (0.57-1.00) Estimat Glomerular Filtration Rate 214mL/min (>59) Glucose Level 99mg/dL (60-99) Calcium Level 6.6mg/dL (8.5-10.1) 7.5mg/dL (8.5-10.1) Phosphorus Level 2.4mg/dL (2.5-4.9) Total Bilirubin 0.4mg/dL (0.0-1.2) Aspartate Amino Transf (AST/SGOT) 31U/L (0-50) Alanine Aminotransferase (ALT/SGPT) 7U/L (0-32) Alkaline Phosphatase 107U/L (25-150) Total Protein 4.5g/dL (6.4-8.4) Albumin 2.2g/dL (3.4-5.0) Lactic Acid Level 1.2mmol/L (0.4-2.0) 1.1mmol/L (0.4-2.0) Microbiology 09/24/16 Blood Culture, Received Pending 09/24/16 MRSA Screen, Received Pending 09/24/16 Urine Culture, Received Pending Vital Signs (First) Date Time Temp Pulse Resp B/P Pulse Ox O2 Delivery O2 Flow Rate FiO2 09/24/16 03:26 39.3 135 33 91/40 92 Room Air 09/24/16 04:46 8 09/24/16 18:50 80 Test 09/24/16 03:30 09/24/16 03:50 09/24/16 04:03 09/24/16 06:20 Urine Random Sodium 65mEq/L Urine Random Potassium 19.8mEq/L Urine Random Chloride 50mEq/L Urine Legionella pneumophilia Ag Negative (Negative) Prothrombin Time 10.6sec (8.1-12.5) Prothromb Time International Ratio 0.99ratio Activated Partial Thromboplast Time 41.1sec (22.8-33.0) Magnesium Level 1.6mg/dL (1.6-2.6) Troponin T 0.010ug/L (0.0-0.011) Pro-B-Type Natriuretic Peptide 1487pg/mL (0-130) Lipase 36U/L (13-60) Hold [place] Top Tube Received (Received) Procalcitonin 3.01ng/mL (0.00-0.08) Test 09/24/16 08:32 09/24/16 12:20 09/24/16 16:35 09/24/16 18:07 Urine Color Yellow (YELLOW) Urine Appearance Hazy (CLEAR,HAZY) Urine pH 6.0 (5.0-8.0) Urine Specific [place] 1.005 (1.003-1.035) Urine Protein Tracemg/dL (NEG,TRACE) Urine Glucose (UA) Negativemg/dL (NEGATIVE) Urine Ketones Negativemg/dL (NEGATIVE) Urine Occult Blood Trace (NEGATIVE) Urine Nitrite Negative (NEGATIVE) Urine Bilirubin Negative (NEGATIVE) Urine Urobilinogen Normalmg/dL (NORMAL) Urine Leukocyte Esterase Trace (NEGATIVE) Urine RBC 0-2/hpf (0-2) Urine WBC 0-5/hpf (0-5) Urine Epithelial Cells Occasional/hpf (NONE-MOD) Urine Crystals None seen (NONE SEEN) Urine Bacteria Few/hpf (NONE-FEW) Urine Hyaline Casts None/lpf (NONE) Urine Granular Casts None seen (NONE SEEN) Urine Waxy Casts None seen (NONE SEEN) Urine Red Blood Cell Casts None seen (NONE SEEN) Urine White Blood Cell Casts None seen (NONE SEEN) Urine Mucus None seen (None Seen) Urine Trichomonas None seen (NONE SEEN) Urine Yeast None (NONE SEEN) Urinalysis Comment None Urine Culture Reflexed Indicated White Blood Count 9.0th/mm3 (3.8-10.1) Red Blood Count 3.53mil/mm3 (3.90-5.20) Hemoglobin 10.0g/dL (12.0-15.6) Hematocrit 29.9% (35.0-46.0) Mean Corpuscular Volume 84.7fL (81-100) Mean Corpuscular Hemoglobin 28.3pg (27.0-35.0) Mean Corpuscular Hemoglobin Concent 33.4% (32.0-37.0) Red Cell Distribution Width 13.0% (12.3-15.4) Platelet Count 142bil/L (150-400) Neutrophils (%) (Auto) 88.0% (40-74) Lymphocytes (%) (Auto) 10.1% (14-46) Monocytes (%) (Auto) 1.6% (4-12) Eosinophils (%) (Auto) 0% (0-5) Basophils (%) (Auto) 0.6% (0-3) Sodium Level 136mEq/L (134-144) Potassium Level 3.6mEq/L (3.5-5.2) Chloride Level 106mEq/L (97-108) Carbon Dioxide Level 18mmol/L (18-29) Blood Urea Nitrogen 5mg/dL (6-20) Creatinine 0.51mg/dL (0.57-1.00) Estimat Glomerular Filtration Rate 214mL/min (>59) Glucose Level 99mg/dL (60-99) Phosphorus Level 2.4mg/dL (2.5-4.9) Total Bilirubin 0.4mg/dL (0.0-1.2) Aspartate Amino Transf (AST/SGOT) 31U/L (0-50) Alanine Aminotransferase (ALT/SGPT) 7U/L (0-32) Alkaline Phosphatase 107U/L (25-150) Total Protein 4.5g/dL (6.4-8.4) Albumin 2.2g/dL (3.4-5.0) Calcium Level 7.5mg/dL (8.5-10.1) Lactic Acid Level 1.1mmol/L (0.4-2.0) Chest x-ray on personal read demonstrates significant left lower lobe infiltrate with occlusion of the left inferior cardiac silhouette. ECG 12 Lead Not performed this admission. Discussed her rhythm with telemetry tach and analyzed: Sinus tachycardia, QTC is within normal limits. Brief History Patient is a 21-year-old woman admitted to [facility] for suspected pneumonia and sepsis, she is 31 weeks , reportedly course has been unremarkable. Patient states she has been receiving routine care through Dr. Fontaine's office, and as of evaluation this morning has not noticed any decrease or increase the movement. This is her first , has not had any vaginal leakage, blood or other abnormal discharge. She has not been feeling contractions. Hospital Course 21-year-old female with past medical history significant for heroin abuse, and currently 31 weeks who presents with approximately one-week history of fever, myalgias, productive cough all of which have been worsening. 1. Sepsis, acute. Present on admission. -Patient received 2 L normal saline in the ER, and we will continue with IVF -Empiric antimicrobials as noted below -Lactic acid is not elevated -We will need to watch her blood pressures closely 2. Community-acquired pneumonia, acute. Present on admission. -Primary concern in this patient is influenza complicated by a secondary bacterial infection -We will administer one time dose of empiric Oseltamivir given the concern for flu in this patient * Will sign out to the day team regarding concerns and a one-time dose, and consideration for continuing 5 days at twice a day dosing. -We will continue empiric Rocephin and azithromycin for potential bacterial etiology -Respiratory PCR swab to be performed -We will add on Legionella and strep urine antigens -Add a sputum culture if patient is able to produce -She received 2 L of normal saline in the ER * In risk of developing fluid overload and pulmonary edema is higher, but with her low pressures, we will continue IVF -Administer oxygen supplementation to maintain saturations at greater than or equal to 94% -Consideration for getting infectious disease, and more importantly pulmonology involved 3. , 31 weeks, . -I have discussed the case personally with Dr. Casarez, and he has tenderness to the offered to come and evaluate the patient here in the hospital -Defer to his recommendations regarding specific interventions -Check heart tones every shift -Check NST daily 4. UTI, unclear if acute (please note the patient was seen in [facility] 2 days ago at which time she was diagnosed with UTI). Present on admission -We need to request records from [facility] -We will continue with empiric ceftriaxone, and await return of urine culture with sensitivities if positive (we will also see what they found it [place]) 5. Normocytic anemia, acute. Present on admission. -review of outpatient records demonstrates a hemoglobin of 14.6 on 03/30/16 -Potentially related to sepsis presentation -Continue to monitor labs closely 6. Hyponatremia, likely acute (but I do not have a past value to which to compare). Present on admission. -Likely related to decreased intake over the last several days given her acute illness -She received 2 L of normal saline in the ER, and we will continue with somewhat gentle hydration with LR -Continue to monitor lab 7. Hypokalemia acute and marked. Present on admission. -Stat repeat -Have ordered 20 mEq rider and 20 mEq to be given by mouth (these will be held until the stat repeat is completed) -Likely will require more -continue to monitor on telemetry 8. Non-gap metabolic acidosis, acute. Present on admission. -Given her degree of ketonuria there is significant concern for a potential ketotic process going on (starvation, alcohol, but diabetes unlikely) -Differential includes: As likely post hypocapnia (given the patient's respiratory distress over the last week), type I distal RTA, GI losses -We will check an ABG -We will add urine sodium, potassium, chloride -Fluid administration with LR at this point 9. On Subutex for history of heroin abuse. -Continue Subutex 8 mg sublingually daily 10. Tobacco dependence -Reports quit 3 weeks ago, potentially contributing to her productive cough -Consideration for very mild anxiolytic to help with withdrawal PRN MEDICATIONS - Acetaminophen as needed for mild pain/fever/headache - Bowel regimen as needed - Antiemetic as needed Patient is admitted under inpatient status with expected length of stay greater than 2 midnights due to severity of presenting symptoms, risk of adverse event, and complexity of treatment plan. Up date to today's note: Patient was seen and examined by both myself (Dr. Chamberlain) and Dr. Donaldson this morning and patient was doing well. Patient seemed to respond to the antibiotics and tylenol, however later in day the patient started to have increased respiratory rate, became more hypotensive, and was febrile. On physical exam the patient was diaphoretic and using accessory muscles. Temperature was 39.4, pulse was 140, respiratory rate was 40, blood pressure was 101/60, pulse ox was 92% on 3.5 L nasal cannula. OB was called for any further recommendations and agreed with me that the patient was too septic and needed to be transferred to Center that had both a NICU and ICU for adults. [facility] was called and stated that the patient was too critical for their facility, [facility] was called and stated that they note did not have any ICU beds for adults and to try calling [facility], [facility] was called and they did not have any ICU beds. I called back to the [facility] and they said that they would make room for the patient. Critical care Dr. Trinidad and OB Dr Pearson from the [facility] were conferenced in and decided to accept the patient. The patient does have a history of anxiety and claustrophobia and was refusing a nonrebreather mask to help her oxygen saturations as they were decreasing. High flow nasal cannula with the nasal prongs was given to the patient and she was satting at 96-97% on 20 L of oxygen with a percent FiO2. The patient was doing well and had less accessory muscle usage for breathing and her respiratory rate was decreasing down from 144. It was explained to the patient that she cannot be transported on this particular device and that she would have to agree to the nonrebreather mask and be stable on this prior to transport. The patient finally agreed and responded well on the nonrebreather mask. Upon departure the patient was satting at 96% to 97% on 15 L of oxygen on the nonrebreather mask, pressure was 98/64, pulse was 126, respiratory rate was 38, temperature was 37.4. Upon discharge the patient did have a PICC line placed and on chest x-ray it was noted that the patient may have a possible cardiac tamponade. I called back who stated that she needed more imaging and for the patient to continue in transport. Patient was stable upon discharge to [facility]. Pneumonia -2 g of Rocephin and 500 mg of azithromycin -2 g meropenem -600 mg of linezolid -4+ liters of IV fluids lactated Ringer's and normal saline -Positive egophony bilaterally, positive consolidation bilaterally on chest x- ray, positive cultures for viral adenovirus Hypokalemia -40 mEq IV 1 time dose Hypocalcemia -4.65 g of calcium gluconate one-time dose -31 weeks and 5 days -NSTs were normal -Dopplers were normal and good accelerations and no decelerations, heart rate upon admission was 130 however later in the day as the patient's heart rate increased the baby's heart rate increased to 180s -12.5 mg of IM betamethasone DVT prophylaxis -No heparin was given patient used SCDs Patient was transferred to the [facility] at 8:15 PM in stable condition. Exam Vital Signs (Last) Date Time Temp Pulse Resp B/P Pulse Ox O2 Delivery O2 Flow Rate FiO2 09/24/16 19:30 37.4 124 39 89/54 96 High Flow 02 20.00 80 Test 09/24/16 03:30 09/24/16 03:50 09/24/16 04:03 09/24/16 06:20 Urine Random Sodium 65mEq/L Urine Random Potassium 19.8mEq/L Urine Random Chloride 50mEq/L Urine Legionella pneumophilia Ag Negative (Negative) Prothrombin Time 10.6sec (8.1-12.5) Prothromb Time International Ratio 0.99ratio Activated Partial Thromboplast Time 41.1sec (22.8-33.0) Magnesium Level 1.6mg/dL (1.6-2.6) Troponin T 0.010ug/L (0.0-0.011) Pro-B-Type Natriuretic Peptide 1487pg/mL (0-130) Lipase 36U/L (13-60) Hold [place] Top Tube Received (Received) Procalcitonin 3.01ng/mL (0.00-0.08) Test 09/24/16 08:32 09/24/16 12:20 09/24/16 16:35 09/24/16 18:07 Urine Color Yellow (YELLOW) Urine Appearance Hazy (CLEAR,HAZY) Urine pH 6.0 (5.0-8.0) Urine Specific [place] 1.005 (1.003-1.035) Urine Protein Tracemg/dL (NEG,TRACE) Urine Glucose (UA) Negativemg/dL (NEGATIVE) Urine Ketones Negativemg/dL (NEGATIVE) Urine Occult Blood Trace (NEGATIVE) Urine Nitrite Negative (NEGATIVE) Urine Bilirubin Negative (NEGATIVE) Urine Urobilinogen Normalmg/dL (NORMAL) Urine Leukocyte Esterase Trace (NEGATIVE) Urine RBC 0-2/hpf (0-2) Urine WBC 0-5/hpf (0-5) Urine Epithelial Cells Occasional/hpf (NONE-MOD) Urine Crystals None seen (NONE SEEN) Urine Bacteria Few/hpf (NONE-FEW) Urine Hyaline Casts None/lpf (NONE) Urine Granular Casts None seen (NONE SEEN) Urine Waxy Casts None seen (NONE SEEN) Urine Red Blood Cell Casts None seen (NONE SEEN) Urine White Blood Cell Casts None seen (NONE SEEN) Urine Mucus None seen (None Seen) Urine Trichomonas None seen (NONE SEEN) Urine Yeast None (NONE SEEN) Urinalysis Comment None Urine Culture Reflexed Indicated White Blood Count 9.0th/mm3 (3.8-10.1) Red Blood Count 3.53mil/mm3 (3.90-5.20) Hemoglobin 10.0g/dL (12.0-15.6) Hematocrit 29.9% (35.0-46.0) Mean Corpuscular Volume 84.7fL (81-100) Mean Corpuscular Hemoglobin 28.3pg (27.0-35.0) Mean Corpuscular Hemoglobin Concent 33.4% (32.0-37.0) Red Cell Distribution Width 13.0% (12.3-15.4) Platelet Count 142bil/L (150-400) Neutrophils (%) (Auto) 88.0% (40-74) Lymphocytes (%) (Auto) 10.1% (14-46) Monocytes (%) (Auto) 1.6% (4-12) Eosinophils (%) (Auto) 0% (0-5) Basophils (%) (Auto) 0.6% (0-3) Sodium Level 136mEq/L (134-144) Potassium Level 3.6mEq/L (3.5-5.2) Chloride Level 106mEq/L (97-108) Carbon Dioxide Level 18mmol/L (18-29) Blood Urea Nitrogen 5mg/dL (6-20) Creatinine 0.51mg/dL (0.57-1.00) Estimat Glomerular Filtration Rate 214mL/min (>59) Glucose Level 99mg/dL (60-99) Phosphorus Level 2.4mg/dL (2.5-4.9) Total Bilirubin 0.4mg/dL (0.0-1.2) Aspartate Amino Transf (AST/SGOT) 31U/L (0-50) Alanine Aminotransferase (ALT/SGPT) 7U/L (0-32) Alkaline Phosphatase 107U/L (25-150) Total Protein 4.5g/dL (6.4-8.4) Albumin 2.2g/dL (3.4-5.0) Calcium Level 7.5mg/dL (8.5-10.1) Lactic Acid Level 1.1mmol/L (0.4-2.0) Microbiology Results Blood and urine cultures pending Rapid flu is negative Discharge Medications Discharge Medications Buprenorphine HCl/Naloxone HCl (Suboxone 2 mg-0.5 mg Sl Film) 1 Each Film 1 EACH SL DAILY (Reported) Followup Plan Disposition: In stable condition transported in [facility] ambulance with a nurse. The patient was unable to be transferred via helicopter due to weather. Time spent Greater than 4 hours copies to: Messi Grace MD, Precious L DO Sep 24, 2016 20:42
[2016-09-25] MEDS ORDERED: Meropenem Inj 2,000 MG in 0.9% Sodium Chloride 100 ML IV SCH (00:30)
[2016-09-25] MEDS ORDERED: Azithromycin Inj 500 MG in Dextrose 5% w/Vial Mate 250 ML IV SCH (08:30)
[2016-09-25] MEDS ORDERED: cefTRIAXone Inj 2,000 MG in Dextrose 5% Minibag Plus 50 ML IV SCH (08:30)
[2016-09-25] MEDS ORDERED: Buprenorphine 2 mg SL Tablet SL SCH (08:30)
== END 2016-09-24 19:20 | disposition short-term general hospital (02) | DRG 781 ==
LOC: SED 03:13 → MPC 05:17 → CCU 18:13
PROVIDERS: ADMIT Internal Medicine; ATTEND Internal Medicine
PROC: 4A033R1 Measurement of Arterial Saturation, Peripheral, Percutaneous Approach (ICD-10-PCS; principal; 2016-09-24)
DX: O98.813 Other maternal infectious and parasitic diseases complicating pregnancy, third trimester (principal); A41.9 Sepsis, unspecified organism; J12.0 Adenoviral pneumonia; O23.43 Unspecified infection of urinary tract in pregnancy, third trimester; E87.1 Hypo-osmolality and hyponatremia; E87.2 Acidosis; O99.323 Drug use complicating pregnancy, third trimester; F11.20 Opioid dependence, uncomplicated; J91.8 Pleural effusion in other conditions classified elsewhere; Z3A.31 31 weeks gestation of pregnancy; O99.013 Anemia complicating pregnancy, third trimester; D64.89 Other specified anemias; O99.333 Smoking (tobacco) complicating pregnancy, third trimester; F17.210 Nicotine dependence, cigarettes, uncomplicated; E87.6 Hypokalemia; B97.0 Adenovirus as the cause of diseases classified elsewhere